=== PATIENT | male | born 2000 | race Caucasian/White ===

== ENCOUNTER 2022-11-05 09:19 | Emergency (ER) | payer MEDICAID ==
[~2022-11-05] VITALS: Ht 177.8 cm; Wt 72.7 kg
[2022-11-05 09:25] VITALS: BP 141/81
== END 2022-11-05 09:38 | disposition home or self-care (01) ==
LOC: ER 09:20
DX: R07.81 Pleurodynia (principal); J45.20 Mild intermittent asthma, uncomplicated; F31.9 Bipolar disorder, unspecified; V89.2XXA Person injured in unspecified motor-vehicle accident, traffic, initial encounter; Y93.89 Activity, other specified; Y92.89 Other specified places as the place of occurrence of the external cause; Y99.8 Other external cause status
CPT/HCPCS: 99283